=== PATIENT | female | born 1950 | race Caucasian/White ===

== ENCOUNTER 2017-03-13 08:05 | Day surgery (SDC) | payer BC, MEDICARE ==
[~2017-03-13 08:05] MED LIST: Midazolam 1 MG/ML 2 ML SDV ONE; Propofol 200 MG/20 ML SDV ONE; fentaNYL 100 MCG/2 ML SDV ONE
--- NOTE | 2017-03-13 08:40 | PCM.PREANE ---
Preanesthetic Assessment - Anesthesia/Transfusion/Family Hx Anesthesia History: Prior Anesthesia Without Reaction Other Type of Anesthesia Reaction Comment: "hard to wake" Family History of Anesthesia Reaction: No Transfusion History: Prior Transfusion Without Reaction Intubation History: Unknown - Review of Systems General: No Symptoms Pulmonary: No Symptoms Cardiovascular: No Symptoms Gastrointestinal: No Symptoms, Other (last colonoscopt 10 years ago was normal) Neurological: No Symptoms Other: Reports: None - Physical Assessment Height: 1.57 m Weight: 87.09 kg ASA Class: 2 Mental Status: Alert & Oriented x3 Airway Class: Mallampati = 2 Dentition: Reports: Normal Dentition (small notch on front upper incisor) Thyro-Mental Finger Breadths: 3 Mouth Opening Finger Breadths: 3 ROM/Head Extension: Full Lungs: Clear to Auscultation, Normal Respiratory Effort Cardiovascular: Regular Rate, Regular Rhythm - Allergies Allergies/Adverse Reactions: Allergies Allergy/AdvReac Type Severity Reaction Status Date / Time eucalyptus Allergy Shortness Verified 03/08/17 13:00 of Breath lisinopril Allergy Cough Verified 03/08/17 13:00 essential oils Allergy Shortness Uncoded 03/08/17 13:23 of Breath - Blood Blood Available: No - Anesthesia Plan Pre-Op Medication Ordered: None - Acknowledgements Anesthesia Type Planned: MAC Pt an Appropriate Candidate for the Planned Anesthesia: Yes Alternatives and Risks of Anesthesia Discussed w Pt/Guardian: Yes Pt/Guardian Understands and Agrees with Anesthesia Plan: Yes PreAnesthesia Questionnaire HEENT History: Reports: Other (See Below) Other HEENT History: wears glasses, sinusitis Cardiovascular History: Reports: Cardiomyopathy, Other (See Below) Other Cardiovascular History: hx rheumatic fever, hx cardiomyopathy from chemo tx. 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: Musculoskeletal History: Reports: Osteoarthritis Neurological History: Reports: None Psychiatric History: Reports: None Endocrine/Metabolic History: Reports: Obesity/BMI 30+ Hematologic History: Reports: Blood Transfusion(s) Other Hematologic History: blood transfusion with chemo tx's Oncologic (Cancer) History: Reports: Breast Dermatologic History: Reports: None - Past Surgical History Head Surgeries/Procedures: Reports: None GI Surgical History: Reports: Appendectomy, Colonoscopy ('07 - normal) Female Surgical History: Reports: Breast Biopsy, Hysterectomy, Other (See Below) Other Female Surgeries/Procedures: breast lumpectomy x3, hx breast cancer, excision of bartholin cyst - SUBSTANCE USE Smoking Status *Q: Never Smoker Recreational Drug Use History: No - HOME MEDS Home Medications: Home Meds Ascorbate Calcium [Vitamin C] 500 mg CHEW DAILY 03/08/17 [History] Aspirin [[place] Aspirin] 81 mg PO DAILY 03/08/17 [History] Cholecalciferol (Vitamin D3) [Vitamin D3] 1,000 units PO DAILY 03/08/17 [History ] Gluc HCl/Csa/Aguilar Hy/Hyalur Ac [Glucosamine Chondroitin] 1 tab PO DAILY [History] Hydrochlorothiazide 12.5 mg PO DAILY 03/08/17 [History] Losartan Potassium 50 mg PO DAILY 03/08/17 [History] Multivits-Min/Iron/FA/Lutein [Centrum Silver Women Tablet] 1 tab PO DAILY [History] Zinc Gluconate [Zinc] 30 mg PO DAILY 03/08/17 [History] - CURRENT (IN HOUSE) MEDS Current Meds: Current Medications Lactated Ringer's (Ringers, Lactated) 1,000 mls @ 125 mls/hr IV ASDIRECTED [facility] Last Admin: 03/13/17 08:34 Dose: 125 mls/hr Discontinued Medications Fentanyl (Sublimaze) Confirm Administered Dose 100 mcg .ROUTE .STK-MED ONE Stop: 03/13/17 07:05 Lidocaine HCl (Xylocaine-Mpf 1%) Confirm Administered Dose 5 ml .ROUTE .STK-MED ONE Stop: 03/13/17 07:42 Midazolam HCl (Versed 1 Mg/Ml) Confirm Administered Dose 2 mg .ROUTE .STK-MED ONE Stop: 03/13/17 07:05 Propofol (Diprivan 20 Ml) Confirm Administered Dose 200 mg .ROUTE .STK-MED ONE Stop: 03/13/17 07:04
[2017-03-13] MEDS ORDERED: Lactated Ringers 1,000 ML IV SCH ×2 (09:00→09:45)
[2017-03-13] MEDS ORDERED: ePHEDrine 50 MG/ML SDV ONE (09:24)
[2017-03-13] MEDS ORDERED: Glycopyrrolate 0.2 MG/ML SDV ONE (09:25)
--- NOTE | 2017-03-13 09:47 | PCM.OPNOTE ---
- General Post-Op/Procedure Note Date of Surgery/Procedure: 03/13/17 Operative Procedure(s): Colonoscopy with cold rectal polypectomy Pre Op Diagnosis: Desire for colorectal cancer screening Post-Op Diagnosis: Rectal polyp Anesthesia Technique: MAC (ASA II) Primary Surgeon: Derick Kraft Condition: Good Free Text/Narrative:: Dictation [id number] CPT CODE 30334
--- NOTE | 2017-03-13 10:54 | OR ---
SURGEON: Derick Kraft M.D. DATE OF PROCEDURE: 03/13/2017 OPERATION PERFORMED: Colonoscopy with cold rectal polypectomy. ANESTHESIA: MAC. ASA CLASSIFICATION: II. PREOPERATIVE DIAGNOSIS: Desire for colorectal cancer screening. POSTOPERATIVE DIAGNOSIS: Rectal polyp. DESCRIPTION OF PROCEDURE: The patient was taken to the endoscopy room and positioned on the endoscopy table in the left lateral decubitus position. Time-out was called for appropriate identification of the patient and procedure. Monitored anesthesia care was provided. The colonoscope was inserted into the rectum and advanced with minimal difficulty to the cecum, where the colonoscope was retroflexed to visualize the ascending colon from below. The colonoscope was then straightened and slowly withdrawn. The cecum, ascending colon, hepatic flexure, transverse colon, splenic flexure, descending colon, and sigmoid colon showed no tumors, polyps, diverticula, angiodysplasia, or evidence of inflammatory bowel disease. One polyp was encountered in the rectum and removed with multiple bites of the cold biopsy forceps. The polyp was removed in its entirety. Minimal bleeding was noted. The colonoscope was withdrawn to the distal rectum and retroflexed to visualize the anal orifice from above. No tumors or polyps were seen and there were no acute hemorrhoidal changes. The colonoscope was then straightened, the rectum aspirated, and the colonoscope removed. The patient tolerated the procedure well and was taken to recovery room in stable condition. VANESSA MARIE /[id number]
== END 2017-03-13 10:15 | disposition home or self-care (01) ==
LOC: MW.SDS 08:05
PROVIDERS: ATTEND Surgery
DX: Z12.11 Encounter for screening for malignant neoplasm of colon (principal); D12.8 Benign neoplasm of rectum; J20.8 Acute bronchitis due to other specified organisms; B96.89 Other specified bacterial agents as the cause of diseases classified elsewhere; I10 Essential (primary) hypertension; Z85.3 Personal history of malignant neoplasm of breast; E78.5 Hyperlipidemia, unspecified; J04.0 Acute laryngitis; J22 Unspecified acute lower respiratory infection; R73.03 Prediabetes; Z88.8 Allergy status to other drugs, medicaments and biological substances; Z79.82 Long term (current) use of aspirin; Z79.899 Other long term (current) drug therapy; Z90.49 Acquired absence of other specified parts of digestive tract; Z90.710 Acquired absence of both cervix and uterus; Z98.890 Other specified postprocedural states
CPT/HCPCS: 45380; J2250; J3010; J7120; 00810; 88305; J2704

== ENCOUNTER 2019-05-28 16:32 | Observation (INO) | payer BC, MEDICARE ==
[2019-05-28] MEDS ORDERED: Metoprolol Tartrate 5 MG/5 ML SDV IVPUSH ONE (16:51)
[2019-05-28] MEDS ORDERED: Sodium Chloride 0.9% 500 ML IV SCH (17:00)
[2019-05-28 17:28] LABS: BLOOD UREA NITROGEN,BUN 15 mg/dL (7.0-18.0); CARBON DIOXIDE,CO2 26.1 mmol/L (21.0-32.0); CHLORIDE,CL 103 mmol/L (98-107); GLUCOSE RANDOM 98 mg/dL (74-106); POTASSIUM,K 3.6 mmol/L (3.5-5.1); SODIUM,NA 139 mmol/L (136-145)
--- NOTE | 2019-05-28 17:53 | CR ---
Chest: 2 views of the chest were obtained. Comparison: Prior chest x-ray of 05/19/15. Heart is mildly enlarged. Lungs are clear with no acute parenchymal change. Bony structures appear within normal limits for the patient's age. Impression: 1. Cardiomegaly. Nothing acute is otherwise seen. Diagnostic code #2 This report was dictated in [place] Standard Time
[2019-05-28] MEDS ORDERED: Iopamidol 755 MG/ML 500 ML Multipack Bottle IVPUSH STA (18:36)
--- NOTE | 2019-05-28 19:00 | CT ---
CT chest Technique: Multiple axial sections through the chest were obtained. Intravenous contrast was utilized. Study has been performed as pulmonary management protocol. Findings: Heart is enlarged. No pulmonary embolism is seen. Scattered lymph nodes are seen believed to be within normal limits. Aorta shows no aneurysm. Visualized upper abdominal structures shows no discrete abnormality. Calcified nodule is noted within the right lung base measuring 1.0 cm which is felt to represent large calcified granuloma. Lungs show no acute parenchymal change. Bone window settings were reviewed. No acute osseous finding is appreciated. Impression: 1. Cardiomegaly. 2. No findings are seen to indicate pulmonary embolism. 3. 1 cm calcified granuloma within the right lung base. 4. No acute parenchymal abnormality is appreciated. Diagnostic code #2 This report was dictated in [place] Standard Time
--- NOTE | 2019-05-28 19:25 | EDM.PDOC ---
ED HPI GENERAL MEDICAL PROBLEM - General Chief Complaint: Cardiovascular Problem Stated Complaint: SICK Time Seen by Provider: 05/28/19 16:47 - History of Present Illness INITIAL COMMENTS - FREE TEXT/NARRATIVE: HPI 69-year-old female with history of breast CA and cardiomyopathy (EF 30%?) Presents for evaluation of several days of palpitations, chest discomfort, and exercise intolerance. * Medications: denies recent medication changes. * Caffeine: denies any change in baseline caffeine use. * Alcohol: denies preceding significant alcohol use. * Drugs: denies stimulant use. * DVT/PE: denies history of DVT, PE, recent calf tenderness or swelling. M/S/F/SocHx notable for: please see HPI; remainder reviewed with patient and in chart. ROS: Negative constitutional, eye, cardiovascular, pulmonary, GI, , MSK, skin , neurologic, psychiatric, endocrine unless noted in the HPI. Exam HR 131, RR 18, BP 137 or 76, T 36.5C, SaO2 96% on room air. Gen: Pleasant, non-toxic appearing, resting comfortably. HEENT: NC, AT, PEERL, EOMI. Resp: Clear to auscultation bilaterally, normal work of breathing, no accessory muscle usage. Card: Irregularly irregular rate with no murmurs, rubs, or gallops, extremities warm and well perfused. GI: Non-tender to palpation throughout all quadrants, no focal tenderness at McBurney's point, negative Chandra's sign, non-distended, no rebound or guarding. : No suprapubic tenderness to palpation.No CVA tenderness to percussion bilaterally.Deferred MSK: No visible deformities, strength and tone without visually appreciable deficit. Skin: Normal color with no visible lesions. Neuro: alert and oriented 3, no facial asymmetry, vision and hearing WNL. Psych: Mood and affect appropriate. Labs / Imaging: EKG: AFib with a ventricular rate of 139 bpm, no new ST segment changes, new LBBB, or T-wave changes that would suggest acute ischemia. CXR: cardiomegaly. Nothing acute is otherwise seen. WBC 8.00, HB 13.6, d-dimer 0.84, sodium 139, potassium 3.6, troponin <0.050, Magnesium 1.9, TSH pending. CTA PE: cardiomegaly. No findings are seen to indicate pulmonary embolism. 1 cm calcified granuloma within the right lung base. No acute parenchymal abnormalities appreciated. MDM Previous chart, nursing note, labs, imaging, and vitals reviewed. A: 69-year-old female with history of breast CA and cardiomyopathy (EF 30%?) Presents for evaluation of several days of palpitations, chest discomfort, and exercise intolerance. DDx & Evaluation: rate control pursued, IV metoprolol given, patient symptomatic with a heart rate of ~100 (chest pain). * Anemia - H&H within normal limits. * Infection - history, exam, and chest x-ray without evidence of clinically appreciable active infectious process. * Cardiac (myocarditis/pericarditis/ACS/heart failure) - doubt myocarditis and pericarditis given the absence of characteristic changes in the patient's repeat ECG as well as the lack of significant troponin elevation, similarly doubt ACS given the absence of ischemia and are negative troponin. Doubt heart failure given the lack of edema on imaging and exam as well as a negative history. * Hyperthyroidism - no features on history or exam, TSH pending. * PE - no evidence by imaging. * Drugs - history without evidence for recent alcohol, caffeine, or other stimulant use that may have triggered today's presenting episode. * AMANUEL - Given the patient's risk factors suspect AMANUEL may be contributing to today's presentation. * Idiopathic/age - suspect idiopathic given the relative exclusion of alternate etiologies, further evaluation deferred to the patient's primary physician. * Anticoagulation - CHADS-VASc value (Age - 1, Gender - 1, CHF - 0, HTN - 1, Stroke/TIA/Thromboembolism - 0, Vascular Disease - 0, DM 0; discussed case with hospitalist, GRETEL given. Critical Care Time Organ system(s): Cardiovascular. Intervention: Assessment of the patient, interpretation of studies, and communication with the patient. Time: 30 minutes were spent directly related to patient care exclusive of separately billed procedures. Disposition: Admitted for monitoring, titration of beta isa, and an echo. Impression: Atrial fibrillation. chest Pain Score (Numeric/FACES): 5 - Related Data Allergies Allergy/AdvReac Type Severity Reaction Status Date / Time eucalyptus Allergy Shortness Verified 05/28/19 16:35 of Breath lisinopril Allergy Cough Verified 05/28/19 16:35 essential oils Allergy Shortness Uncoded 03/08/17 13:23 of Breath Home Meds: Home Meds Aspirin [[place] Aspirin EC] 81 mg PO DAILY 03/08/17 [History] Cholecalciferol (Vitamin D3) [Vitamin D3] 1,000 units PO DAILY 03/08/17 [History ] Losartan Potassium 50 mg PO DAILY 03/08/17 [History] Multivit-Min/Iron/Folic/Lutein [Centrum Silver Women Tablet] 1 tab PO DAILY [History] hydroCHLOROthiazide [Hydrochlorothiazide] 12.5 mg PO DAILY 03/08/17 [History] Fish Oil/Albers-3 Fatty Acids [Fish Oil 1,000 MG] 1 cap PO DAILY 05/28/19 [ History] Iron 1 tab PO ASDIRECTED 05/28/19 [History] Magnesium 1 tab PO DAILY 05/28/19 [History] Past Medical History HEENT History: Reports: Other (See Below) Other HEENT History: wears glasses, sinusitis Cardiovascular History: Reports: Cardiomyopathy, Other (See Below) Other Cardiovascular History: hx rheumatic fever, hx cardiomyopathy from chemo tx. 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: Musculoskeletal History: Reports: Osteoarthritis Neurological History: Reports: None Psychiatric History: Reports: None Endocrine/Metabolic History: Reports: Obesity/BMI 30+ Hematologic History: Reports: Blood Transfusion(s) Other Hematologic History: blood transfusion with chemo tx's Immunologic History: Reports: None Oncologic (Cancer) History: Reports: Breast Dermatologic History: Reports: None - Infectious Disease History Infectious Disease History: Reports: None - Past Surgical History Head Surgeries/Procedures: Reports: None HEENT Surgical History: Reports: None Cardiovascular Surgical History: Reports: None Respiratory Surgical History: Reports: None GI Surgical History: Reports: Appendectomy, Colonoscopy Female Surgical History: Reports: Breast Biopsy, Hysterectomy, Other (See Below) Other Female Surgeries/Procedures: breast lumpectomy x3, hx breast cancer, excision of bartholin cyst Endocrine Surgical History: Reports: None Neurological Surgical History: Reports: None Musculoskeletal Surgical History: Reports: None Oncologic Surgical History: Reports: None Dermatological Surgical History: Reports: None Social & Family History - Family History Family Medical History: Noncontributory - Tobacco Use Smoking Status *Q: Never Smoker Second Hand Smoke Exposure: No - Caffeine Use Caffeine Use: Reports: None - Recreational Drug Use Recreational Drug Use: No ED ROS GENERAL - Review of Systems Review Of Systems: See Below ED EXAM, GENERAL - Physical Exam Exam: See Below Course - Vital Signs Last Recorded V/S: Last Vital Signs Temp 36.5 C 05/28/19 16:38 Pulse 86 05/28/19 18:00 Resp 17 05/28/19 18:00 BP 123/72 05/28/19 18:00 Pulse Ox 98 05/28/19 18:00 - Orders/Labs/Meds Orders: Active Orders 24 hr Category Date Time Status EKG 12 Lead [EKG Documentation Completion] [RC] STAT Care 05/28/19 16:38 Active TSH [CHEM] Stat Lab 05/28/19 19:21 Ordered Enoxaparin [Lovenox] Med 05/28/19 19:30 Ordered 80 mg SUBCUT DAILY Sodium Chloride 0.9% [Normal Saline] 500 ml Med 05/28/19 17:00 Active IV .BOLUS Medication Orders Enoxaparin Sodium (Lovenox) 80 mg SUBCUT DAILY BRENDAN Sodium Chloride (Normal Saline) 500 mls @ 1,000 mls/hr IV .BOLUS BRENDAN Last Admin: 05/28/19 17:09 Dose: 1,000 mls/hr Labs: Laboratory Tests 05/28/19 05/28/19 05/28/19 Range/Units 16:52 16:52 16:52 WBC 8.00 (4.0-11.0) K/uL RBC 4.46 (4.30-5.90) M/uL Hgb 13.6 (12.0-16.0) g/dL Hct 41.7 (36.0-46.0) % MCV 93.5 (80.0-98.0) fL MCH 30.5 (27.0-32.0) pg MCHC 32.6 (31.0-37.0) g/dL RDW Std Deviation 46.7 (28.0-62.0) fl RDW Coeff of Karsten 14 (11.0-15.0) % Plt Count 188 (150-400) K/uL MPV 11.10 (7.40-12.00) fL Neut % (Auto) 47.7 L (48.0-80.0) % Lymph % (Auto) 39.0 (16.0-40.0) % [place] % (Auto) 10.5 (0.0-15.0) % Eos % (Auto) 2.3 (0.0-7.0) % Baso % (Auto) 0.5 (0.0-1.5) % Neut # (Auto) 3.8 (1.4-5.7) K/uL Lymph # (Auto) 3.1 H (0.6-2.4) K/uL [place] # (Auto) 0.8 (0.0-0.8) K/uL Eos # (Auto) 0.2 (0.0-0.7) K/uL Baso # (Auto) 0.0 (0.0-0.1) K/uL Nucleated RBC % 0.0 /100WBC Nucleated RBCs # 0 K/uL D-Dimer, Quantitative 0.84 H (0.0-0.50) mg/L FEU Sodium 139 (136-145) mmol/L Potassium 3.6 (3.5-5.1) mmol/L Chloride 103 (98-107) mmol/L Carbon Dioxide 26.1 (21.0-32.0) mmol/L BUN 15 (7.0-18.0) mg/dL Creatinine 0.9 (0.6-1.0) mg/dL Est Cr Clr Drug Dosing 47.32 mL/min Estimated GFR (MDRD) > 60.0 ml/min Glucose 98 (74-106) mg/dL Calcium 9.1 (8.5-10.1) mg/dL Magnesium 1.9 (1.8-2.4) mg/dL Troponin I < 0.050 (0.000-0.056) ng/mL Meds: Medications Generic Name Dose Route Start Last Admin Trade Name Freq PRN Reason Stop Dose Admin Enoxaparin Sodium 80 mg 05/28/19 19:30 Lovenox SUBCUT DAILY BRENDAN Sodium Chloride 500 mls @ 1,000 mls/hr 05/28/19 17:00 05/28/19 17:09 Normal Saline IV 1,000 mls/hr .BOLUS BRENDAN Administration Discontinued Medications Generic Name Dose Route Start Last Admin Trade Name Freq PRN Reason Stop Dose Admin Iopamidol 50 ml 05/28/19 18:36 05/28/19 18:37 Isovue Multipack-370 (76%) IVPUSH 05/28/19 18:37 50 ml ONETIME STA Administration Metoprolol Tartrate 5 mg 05/28/19 16:51 05/28/19 17:10 Lopressor IVPUSH 05/28/19 16:52 5 mg ONETIME ONE Administration Quetiapine Fumarate 50 mg 05/28/19 17:56 Seroquel PO 05/28/19 17:57 ONETIME ONE Ziprasidone 10 mg 05/28/19 21:00 Geodon PO BEDTIME BRENDAN Departure - Departure Time of Disposition: 19:25 Disposition: Admitted As Inpatient 67 Clinical Impression: Atrial fibrillation Referrals: Josue Delcid MD [Primary Care Provider] - Sepsis Event Note - Evaluation Sepsis Screening Result: No Definite Risk - Focused Exam Vital Signs: Vital Signs Temp Pulse Pulse Resp BP BP Pulse Ox 05/28/19 18:00 86 17 123/72 98 05/28/19 17:16 96 16 123/69 95 05/28/19 17:10 117 H 127/72 05/28/19 16:38 36.5 C 131 H 18 137/76 96 Date Exam was Performed: 05/28/19 Time Exam was Performed: 19:25 - My Orders Last 24 Hours: My Active Orders 05/28/19 16:38 EKG 12 Lead [EKG Documentation Completion] [RC] STAT 05/28/19 17:00 Sodium Chloride 0.9% [Normal Saline] 500 ml IV .BOLUS 05/28/19 19:21 TSH [CHEM] Stat 05/28/19 19:30 Enoxaparin [Lovenox] 80 mg SUBCUT DAILY - Assessment/Plan Last 24 Hours: My Active Orders 05/28/19 16:38 EKG 12 Lead [EKG Documentation Completion] [RC] STAT 05/28/19 17:00 Sodium Chloride 0.9% [Normal Saline] 500 ml IV .BOLUS 05/28/19 19:21 TSH [CHEM] Stat 05/28/19 19:30 Enoxaparin [Lovenox] 80 mg SUBCUT DAILY
[2019-05-28] MEDS ORDERED: Enoxaparin 100 MG/1 ML Syringe SUBCUT SCH (19:30)
[2019-05-28] MEDS ORDERED: Ziprasidone HCl 20 MG Cap PO SCH (21:00)
--- NOTE | 2019-05-28 23:24 | PCM.HP.2 ---
H&P History of Present Illness - General Date of Service: 05/28/19 Admit Problem/Dx: Admission Diagnosis/Problem Admission Diagnosis/Problem Atrial fibrillation - History of Present Illness Initial Comments - Free Text/Narative: 69 yo female with pmh of cardiomyopathy and breast cancer who presented to the ED with complaints of chest pain for past three days. She describes the pain as chest pressure that is constant and not related to exertion. She denies any palpitations, shortness of breath, or heart burn. In the ED she was noted to be in atrial fibrillation with HR in the 140s. She was given IV metoprolol with improvement of her her heart rate in 100 and resolution of her chest pain. chest Pain Score (Numeric/FACES): 5 - Related Data Allergies/Adverse Reactions: Allergies Allergy/AdvReac Type Severity Reaction Status Date / Time eucalyptus Allergy Shortness Verified 05/28/19 20:19 of Breath lisinopril Allergy Cough Verified 05/28/19 20:19 essential oils Allergy Shortness Uncoded 05/28/19 20:19 of Breath Home Medications: Home Meds Aspirin [Bates Aspirin EC] 81 mg PO DAILY 03/08/17 [History] Cholecalciferol (Vitamin D3) [Vitamin D3] 1,000 units PO DAILY 03/08/17 [History ] Losartan Potassium 50 mg PO DAILY 03/08/17 [History] Multivit-Min/Iron/Folic/Lutein [Centrum Silver Women Tablet] 1 tab PO DAILY [History] hydroCHLOROthiazide [Hydrochlorothiazide] 12.5 mg PO DAILY 03/08/17 [History] Fish Oil/[place]-3 Fatty Acids [Fish Oil 1,000 MG] 1 cap PO DAILY 05/28/19 [ History] Iron 1 tab PO ASDIRECTED 05/28/19 [History] Magnesium 1 tab PO DAILY 05/28/19 [History] Past Medical History HEENT History: Reports: Other (See Below) Other HEENT History: wears glasses, Cardiovascular History: Reports: Cardiomyopathy, Other (See Below) Other Cardiovascular History: hx rheumatic fever, hx cardiomyopathy from chemo tx. 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: Musculoskeletal History: Reports: Osteoarthritis Neurological History: Reports: None Psychiatric History: Reports: None Endocrine/Metabolic History: Reports: Obesity/BMI 30+ Hematologic History: Reports: Blood Transfusion(s) Other Hematologic History: blood transfusion with chemo tx's Immunologic History: Reports: None Oncologic (Cancer) History: Reports: Breast Dermatologic History: Reports: None - Infectious Disease History Infectious Disease History: Reports: None - Past Surgical History Head Surgeries/Procedures: Reports: None HEENT Surgical History: Reports: None Cardiovascular Surgical History: Reports: None Respiratory Surgical History: Reports: None GI Surgical History: Reports: Appendectomy, Colonoscopy Female Surgical History: Reports: Breast Biopsy, Hysterectomy, Other (See Below) Other Female Surgeries/Procedures: breast lumpectomy x3, hx breast cancer, excision of bartholin cyst Endocrine Surgical History: Reports: None Neurological Surgical History: Reports: None Musculoskeletal Surgical History: Reports: None Oncologic Surgical History: Reports: Lumpectomy Dermatological Surgical History: Reports: None Social & Family History - Family History Family Medical History: Noncontributory - Tobacco Use Smoking Status *Q: Never Smoker Second Hand Smoke Exposure: No - Caffeine Use Caffeine Use: Reports: Coffee - Recreational Drug Use Recreational Drug Use: No H&P Review of Systems - Review of Systems: Review Of Systems: Comprehensive ROS is negative, except as noted in HPI. Exam - Exam Exam: See Below - Vital Signs Vital Signs: Last Vital Signs Temp 36.3 C 05/28/19 20:15 Pulse 101 H 05/28/19 20:15 Resp 18 05/28/19 20:15 BP 118/73 05/28/19 20:15 Pulse Ox 96 05/28/19 20:15 Weight: 85.8 kg - Exam General: Alert, Oriented HEENT: Mucosa Moist & [place] Neck: Supple Lungs: Clear to Auscultation, Normal Respiratory Effort Cardiovascular: Regular Rate, Irregular Rhythm Extremities: Non-Tender, No Pedal Edema Skin: Warm, Dry, Intact - Patient Data Lab Results Last 24 hrs: Laboratory Results - last 24 hr 05/28/19 05/28/19 05/28/19 Range/Units 16:52 16:52 16:52 WBC 8.00 (4.0-11.0) K/uL RBC 4.46 (4.30-5.90) M/uL Hgb 13.6 (12.0-16.0) g/dL Hct 41.7 (36.0-46.0) % MCV 93.5 (80.0-98.0) fL MCH 30.5 (27.0-32.0) pg MCHC 32.6 (31.0-37.0) g/dL RDW Std Deviation 46.7 (28.0-62.0) fl RDW Coeff of Karsten 14 (11.0-15.0) % Plt Count 188 (150-400) K/uL MPV 11.10 (7.40-12.00) fL Neut % (Auto) 47.7 L (48.0-80.0) % Lymph % (Auto) 39.0 (16.0-40.0) % [place] % (Auto) 10.5 (0.0-15.0) % Eos % (Auto) 2.3 (0.0-7.0) % Baso % (Auto) 0.5 (0.0-1.5) % Neut # (Auto) 3.8 (1.4-5.7) K/uL Lymph # (Auto) 3.1 H (0.6-2.4) K/uL [place] # (Auto) 0.8 (0.0-0.8) K/uL Eos # (Auto) 0.2 (0.0-0.7) K/uL Baso # (Auto) 0.0 (0.0-0.1) K/uL Nucleated RBC % 0.0 /100WBC Nucleated RBCs # 0 K/uL D-Dimer, Quantitative 0.84 H (0.0-0.50) mg/L FEU Sodium 139 (136-145) mmol/L Potassium 3.6 (3.5-5.1) mmol/L Chloride 103 (98-107) mmol/L Carbon Dioxide 26.1 (21.0-32.0) mmol/L BUN 15 (7.0-18.0) mg/dL Creatinine 0.9 (0.6-1.0) mg/dL Est Cr Clr Drug Dosing 47.32 mL/min Estimated GFR (MDRD) > 60.0 ml/min Glucose 98 (74-106) mg/dL Calcium 9.1 (8.5-10.1) mg/dL Magnesium 1.9 (1.8-2.4) mg/dL Troponin I < 0.050 (0.000-0.056) ng/mL TSH 3rd Generation (0.36-3.74) uIU/mL 05/28/19 Range/Units 16:52 WBC (4.0-11.0) K/uL RBC (4.30-5.90) M/uL Hgb (12.0-16.0) g/dL Hct (36.0-46.0) % MCV (80.0-98.0) fL MCH (27.0-32.0) pg MCHC (31.0-37.0) g/dL RDW Std Deviation (28.0-62.0) fl RDW Coeff of Karsten (11.0-15.0) % Plt Count (150-400) K/uL MPV (7.40-12.00) fL Neut % (Auto) (48.0-80.0) % Lymph % (Auto) (16.0-40.0) % [place] % (Auto) (0.0-15.0) % Eos % (Auto) (0.0-7.0) % Baso % (Auto) (0.0-1.5) % Neut # (Auto) (1.4-5.7) K/uL Lymph # (Auto) (0.6-2.4) K/uL [place] # (Auto) (0.0-0.8) K/uL Eos # (Auto) (0.0-0.7) K/uL Baso # (Auto) (0.0-0.1) K/uL Nucleated RBC % /100WBC Nucleated RBCs # K/uL D-Dimer, Quantitative (0.0-0.50) mg/L FEU Sodium (136-145) mmol/L Potassium (3.5-5.1) mmol/L Chloride (98-107) mmol/L Carbon Dioxide (21.0-32.0) mmol/L BUN (7.0-18.0) mg/dL Creatinine (0.6-1.0) mg/dL Est Cr Clr Drug Dosing mL/min Estimated GFR (MDRD) ml/min Glucose (74-106) mg/dL Calcium (8.5-10.1) mg/dL Magnesium (1.8-2.4) mg/dL Troponin I (0.000-0.056) ng/mL TSH 3rd Generation 3.36 (0.36-3.74) uIU/mL Result Diagrams: 05/28/19 16:52 05/28/19 16:52 Sepsis Event Note - Evaluation Sepsis Screening Result: No Definite Risk - Focused Exam Vital Signs: Vital Signs Temp Pulse Pulse Resp BP BP Pulse Ox 05/28/19 20:15 36.3 C 101 H 18 118/73 96 05/28/19 19:35 36.3 C 82 18 107/64 96 05/28/19 18:00 86 17 123/72 98 05/28/19 17:16 96 16 123/69 95 05/28/19 17:10 117 H 127/72 05/28/19 16:38 36.5 C 131 H 18 137/76 96 Date Exam was Performed: 05/28/19 Time Exam was Performed: 23:17 Problem List Initiated/Reviewed/Updated: Yes Orders Last 24hrs: Active Orders 24 hr Category Date Time Status Patient Status [ADT] Stat ADT 05/28/19 19:27 Active EKG 12 Lead [EKG Documentation Completion] [RC] STAT Care 05/28/19 16:38 Active Telemetry Monitoring [Cardiac Monitoring] [RC] Q8H Care 05/28/19 20:00 Active Regular Diet [DIET] Diet 05/29/19 Breakfast Active Echo 2D wo Cont [US] AM Exams 05/29/19 05:11 Ordered TROPONIN I [CHEM] Q6H Lab 05/28/19 22:53 Received TROPONIN I [CHEM] Q6H Lab 05/29/19 05:00 Ordered Enoxaparin [Lovenox] Med 05/28/19 19:30 Active 80 mg SUBCUT DAILY Metoprolol Tartrate [Lopressor] Med 05/28/19 23:15 Ordered 25 mg PO Q12H Sodium Chloride 0.9% [Normal Saline] 500 ml Med 05/28/19 17:00 Active IV .BOLUS Medication Orders Enoxaparin Sodium (Lovenox) 80 mg SUBCUT DAILY [facility] Last Admin: 05/28/19 19:32 Dose: 80 mg Sodium Chloride (Normal Saline) 500 mls @ 1,000 mls/hr IV .BOLUS BRENDAN Last Admin: 05/28/19 17:09 Dose: 1,000 mls/hr Metoprolol Tartrate (Lopressor) 25 mg PO Q12H [facility] Assessment/Plan Comment:: 69 yo female admitted for atrial fibrillation with RVR. She is currently rate controlled and chest pain free. We will continue to monitor on telemetry. Will start metoprolol 25mg BID and order echocardiogram for the morning.
[2019-05-28] MEDS: Metoprolol Tartrate 25 MG Tab PO SCH (23:41)
[2019-05-29] MEDS ORDERED: Acetaminophen 325 MG Tab PO PRN (08:02)
[2019-05-29] MEDS ORDERED: Ondansetron 4 MG/2 ML SDV IVPUSH PRN (08:02)
[2019-05-29] MEDS ORDERED: Sodium Chloride 0.9% 2.5 ML Syringe FLUSH PRN (08:02)
[2019-05-29] MEDS ORDERED: Sodium Chloride 0.9% 10 ML Syringe FLUSH PRN (08:02)
[2019-05-29 08:53] LABS: BLOOD UREA NITROGEN,BUN 13 mg/dL (7.0-18.0); CARBON DIOXIDE,CO2 25.7 mmol/L (21.0-32.0); CHLORIDE,CL 105 mmol/L (98-107); GLUCOSE RANDOM 112 mg/dL (74-106); POTASSIUM,K 3.9 mmol/L (3.5-5.1); SODIUM,NA 143 mmol/L (136-145)
[2019-05-29] MEDS ORDERED: Non-Formulary Medication 1 Each (Hydrochlorothiazide [Hydrochlorothiazide] 12.5 MG) PO SCH (09:00)
[2019-05-29] MEDS ORDERED: Fish Oil/Omega-3 Fatty Acids 1 Gm Cap PO SCH (09:00)
[2019-05-29] MEDS ORDERED: Apixaban 5 MG Tab PO SCH (09:00)
[2019-05-29] MEDS ORDERED: Cholecalciferol (Vitamin D3) 25 MCG Tab PO SCH (09:00)
[2019-05-29] MEDS ORDERED: Magnesium Oxide 400 MG Tab PO SCH ×2 (09:00→09:45)
[2019-05-29] MEDS ORDERED: Losartan 50 MG Tab PO SCH (09:00)
[2019-05-29] MEDS ORDERED: Multivitamin Tab PO SCH (09:00)
[2019-05-29] MEDS ORDERED: Ferrous Sulfate 325 MG Tab PO SCH (09:45)
[2019-05-29] MEDS ORDERED: Potassium Chloride 20 MEQ Tab.ER PO ONE (10:05)
[2019-05-29] MEDS: Metoprolol Tartrate 25 MG Tab PO SCH (10:29)
--- NOTE | 2019-05-29 11:30 | PCM.DCSUM1 ---
Discharge Summary - Hospital Course Brief History: 69 yo female with pmh of cardiomyopathy and breast cancer who presented to the ED with complaints of chest pain for past three days. She describes the pain as chest pressure that is constant and not related to exertion. She denies any palpitations, shortness of breath, or heart burn. In the ED she was noted to be in atrial fibrillation with HR in the 140s. She was given IV metoprolol with improvement of her her heart rate in 100 and resolution of her chest pain. Diagnosis: Stroke: No - Discharge Data Discharge Date: 05/29/19 Discharge Disposition: Home, Self-Care 01 Condition: Good - Referral to Home Health Primary Care Physician: Josue Delcid MD - Patient Instructions Diet: Heart Healthy Diet Activity: As Tolerated Showering/Bathing: May Shower Notify Provider of: Fever, Increased Pain, Swelling and Redness, Drainage, Nausea and/or Vomiting Other/Special Instructions: Hold Losartan, monitor Blood pressures. If blood pressures consistently stay above 110 on the top, then you may resume Losartan. - Discharge Plan *PRESCRIPTION DRUG MONITORING PROGRAM REVIEWED*: Not Applicable *COPY OF PRESCRIPTION DRUG MONITORING REPORT IN PATIENT YADIEL: Not Applicable Prescriptions/Med Rec: Apixaban [Eliquis] 5 mg PO BID #30 tablet Metoprolol Tartrate [Lopressor] 25 mg PO Q12H #60 tablet Home Medications: Home Meds Cholecalciferol (Vitamin D3) [Vitamin D3] 5,000 units PO DAILY 03/08/17 [History ] Multivit-Min/Iron/Folic/Lutein [Centrum Silver Women Tablet] 1 tab PO DAILY [History] Fish Oil/[place]-3 Fatty Acids [Fish Oil 1,000 MG] 1 cap PO DAILY 05/28/19 [ History] Iron 1 tab PO ASDIRECTED 05/28/19 [History] Magnesium 1 tab PO DAILY 05/28/19 [History] Apixaban [Eliquis] 5 mg PO BID #30 tablet 05/29/19 [Rx] Aspirin 81 mg PO DAILY 05/29/19 [History] Losartan Potassium 50 mg PO DAILY #0 05/29/19 [Rx] Metoprolol Tartrate [Lopressor] 25 mg PO Q12H #60 tablet 05/29/19 [Rx] hydroCHLOROthiazide [Hydrochlorothiazide] 12.5 mg PO DAILY 05/29/19 [History] Oxygen Therapy Mode: Room Air Patient Handouts: Atrial Fibrillation, [id number] Referrals: Candida Durbin MD [Physician] - Janki Perkins NP [Nurse Practitioner] - 06/03/19 11:00 am (Was not able to be made with Dr. Delcid due to his full schedule.) Josue Delcid MD [Primary Care Provider] - 06/26/19 1:30 pm - Discharge Summary/Plan Comment DC Time >30 min.: No Discharge Summary/Plan Comment: admitting Diagnoses: Afib RVR Discharge Diagnoses: Afib RVR Other PMH Cardiomyopathy Hx breast cancer Liseth was admitted after having chest pain and palpitations for a few days. She was noted to be in Afib RVR, treated with Metoprolol IV which improved rate control. She was started on Metoprolol 25 mg BID, rate controlled 60-90s, remains in Afib. D dimer elevated, but CT angio negative for PE. CHADSVASc score 2, so Eliquis 5 mg BID started at this time. She will continue this for now. BP softer, we opted to stop HCTZ and Hold Losartan for now. She is to monitor BP at home, if BP remains above 110 SBP consistently, she can resume Losartan. Otherwise she wan follow with PCP and decide restarting Losartan at half the dose. ECHO pending on discharge. Troponins trended. She is to follow up with Cardiology and PCP as outpatient. She is to return to the ED or clinic if concerns should arise. - Patient Data Vitals - Most Recent: Last Vital Signs Temp 98.2 F 05/29/19 07:48 Pulse 90 05/29/19 10:29 Resp 16 05/29/19 07:48 BP 110/74 05/29/19 10:29 Pulse Ox 92 L 05/29/19 07:48 Weight - Most Recent: 85.8 kg I&O - Last 24 hours: Intake & Output 05/28/19 05/29/19 05/29/19 22:59 06:59 14:59 Intake Total 1800 Output Total 1400 Balance 400 Lab Results - Last 24 hrs: Laboratory Results - last 24 hr 05/28/19 05/28/19 05/28/19 Range/Units 16:52 16:52 16:52 WBC 8.00 (4.0-11.0) K/uL RBC 4.46 (4.30-5.90) M/uL Hgb 13.6 (12.0-16.0) g/dL Hct 41.7 (36.0-46.0) % MCV 93.5 (80.0-98.0) fL MCH 30.5 (27.0-32.0) pg MCHC 32.6 (31.0-37.0) g/dL RDW Std Deviation 46.7 (28.0-62.0) fl RDW Coeff of Karsten 14 (11.0-15.0) % Plt Count 188 (150-400) K/uL MPV 11.10 (7.40-12.00) fL Neut % (Auto) 47.7 L (48.0-80.0) % Lymph % (Auto) 39.0 (16.0-40.0) % [place] % (Auto) 10.5 (0.0-15.0) % Eos % (Auto) 2.3 (0.0-7.0) % Baso % (Auto) 0.5 (0.0-1.5) % Neut # (Auto) 3.8 (1.4-5.7) K/uL Lymph # (Auto) 3.1 H (0.6-2.4) K/uL Coffee # (Auto) 0.8 (0.0-0.8) K/uL Eos # (Auto) 0.2 (0.0-0.7) K/uL Baso # (Auto) 0.0 (0.0-0.1) K/uL Nucleated RBC % 0.0 /100WBC Nucleated RBCs # 0 K/uL D-Dimer, Quantitative 0.84 H (0.0-0.50) mg/L FEU Sodium 139 (136-145) mmol/L Potassium 3.6 (3.5-5.1) mmol/L Chloride 103 (98-107) mmol/L Carbon Dioxide 26.1 (21.0-32.0) mmol/L BUN 15 (7.0-18.0) mg/dL Creatinine 0.9 (0.6-1.0) mg/dL Est Cr Clr Drug Dosing 47.32 mL/min Estimated GFR (MDRD) > 60.0 ml/min Glucose 98 (74-106) mg/dL Calcium 9.1 (8.5-10.1) mg/dL Magnesium 1.9 (1.8-2.4) mg/dL Troponin I < 0.050 (0.000-0.056) ng/mL TSH 3rd Generation (0.36-3.74) uIU/mL 05/28/19 05/28/19 05/29/19 Range/Units 16:52 22:53 05:40 WBC (4.0-11.0) K/uL RBC (4.30-5.90) M/uL Hgb (12.0-16.0) g/dL Hct (36.0-46.0) % MCV (80.0-98.0) fL MCH (27.0-32.0) pg MCHC (31.0-37.0) g/dL RDW Std Deviation (28.0-62.0) fl RDW Coeff of Karsten (11.0-15.0) % Plt Count (150-400) K/uL MPV (7.40-12.00) fL Neut % (Auto) (48.0-80.0) % Lymph % (Auto) (16.0-40.0) % [place] % (Auto) (0.0-15.0) % Eos % (Auto) (0.0-7.0) % Baso % (Auto) (0.0-1.5) % Neut # (Auto) (1.4-5.7) K/uL Lymph # (Auto) (0.6-2.4) K/uL Coffee # (Auto) (0.0-0.8) K/uL Eos # (Auto) (0.0-0.7) K/uL Baso # (Auto) (0.0-0.1) K/uL Nucleated RBC % /100WBC Nucleated RBCs # K/uL D-Dimer, Quantitative (0.0-0.50) mg/L FEU Sodium (136-145) mmol/L Potassium (3.5-5.1) mmol/L Chloride (98-107) mmol/L Carbon Dioxide (21.0-32.0) mmol/L BUN (7.0-18.0) mg/dL Creatinine (0.6-1.0) mg/dL Est Cr Clr Drug Dosing mL/min Estimated GFR (MDRD) ml/min Glucose (74-106) mg/dL Calcium (8.5-10.1) mg/dL Magnesium (1.8-2.4) mg/dL Troponin I < 0.050 < 0.050 (0.000-0.056) ng/mL TSH 3rd Generation 3.36 (0.36-3.74) uIU/mL 05/29/19 05/29/19 Range/Units 08:20 08:20 WBC 5.78 (4.0-11.0) K/uL RBC 4.53 (4.30-5.90) M/uL Hgb 13.6 (12.0-16.0) g/dL Hct 42.5 (36.0-46.0) % MCV 93.8 (80.0-98.0) fL MCH 30.0 (27.0-32.0) pg MCHC 32.0 (31.0-37.0) g/dL RDW Std Deviation 47.4 (28.0-62.0) fl RDW Coeff of Karsten 14 (11.0-15.0) % Plt Count 171 (150-400) K/uL MPV 11.10 (7.40-12.00) fL Neut % (Auto) 45.2 L (48.0-80.0) % Lymph % (Auto) 42.0 H (16.0-40.0) % [place] % (Auto) 9.7 (0.0-15.0) % Eos % (Auto) 2.6 (0.0-7.0) % Baso % (Auto) 0.5 (0.0-1.5) % Neut # (Auto) 2.6 (1.4-5.7) K/uL Lymph # (Auto) 2.4 (0.6-2.4) K/uL Coffee # (Auto) 0.6 (0.0-0.8) K/uL Eos # (Auto) 0.2 (0.0-0.7) K/uL Baso # (Auto) 0.0 (0.0-0.1) K/uL Nucleated RBC % 0.0 /100WBC Nucleated RBCs # 0 K/uL D-Dimer, Quantitative (0.0-0.50) mg/L FEU Sodium 143 (136-145) mmol/L Potassium 3.9 (3.5-5.1) mmol/L Chloride 105 (98-107) mmol/L Carbon Dioxide 25.7 (21.0-32.0) mmol/L BUN 13 (7.0-18.0) mg/dL Creatinine 0.8 (0.6-1.0) mg/dL Est Cr Clr Drug Dosing 52.77 mL/min Estimated GFR (MDRD) > 60.0 ml/min Glucose 112 H (74-106) mg/dL Calcium 8.9 (8.5-10.1) mg/dL Magnesium 1.8 (1.8-2.4) mg/dL Troponin I (0.000-0.056) ng/mL TSH 3rd Generation (0.36-3.74) uIU/mL Med Orders - Current: Current Medications Acetaminophen (Tylenol) 650 mg PO Q4H PRN PRN Reason: Pain (Mild 1-3)/fever Apixaban (Eliquis) 5 mg PO BID [facility] Last Admin: 05/29/19 09:34 Dose: 5 mg Cholecalciferol (Vitamin D3) 125 mcg PO DAILY [facility] Ferrous Sulfate (Ferrous Sulfate) 325 mg PO DAILY [facility] Last Admin: 05/29/19 10:29 Dose: 325 mg Fish Oil (Fish Oil) 1 gm PO DAILY [facility] Last Admin: 05/29/19 09:34 Dose: 1 gm Losartan Potassium (Cozaar) 50 mg PO DAILY [facility] Last Admin: 05/29/19 09:37 Dose: Not Given Magnesium Oxide (Magnesium Oxide) 400 mg PO DAILY [facility] Last Admin: 05/29/19 10:31 Dose: 400 mg Metoprolol Tartrate (Lopressor) 25 mg PO Q12H [facility] Last Admin: 05/29/19 10:29 Dose: 25 mg Multivitamins/Minerals/Vitamin C (Tab-A-Db) 1 tab PO DAILY [facility] Last Admin: 05/29/19 09:35 Dose: 1 tab Ondansetron HCl (Zofran) 4 mg IVPUSH Q4H PRN PRN Reason: Nausea Sodium Chloride (Saline Flush) 10 ml FLUSH ASDIRECTED PRN PRN Reason: Keep Vein Open Sodium Chloride (Saline Flush) 2.5 ml FLUSH ASDIRECTED PRN PRN Reason: Keep Vein Open Discontinued Medications Cholecalciferol (Vitamin D3) 25 mcg PO DAILY [facility] Last Admin: 05/29/19 09:34 Dose: 25 mcg Enoxaparin Sodium (Lovenox) 80 mg SUBCUT DAILY [facility] Last Admin: 05/28/19 19:32 Dose: 80 mg Sodium Chloride (Normal Saline) 500 mls @ 1,000 mls/hr IV .BOLUS [facility] Last Admin: 05/28/19 17:09 Dose: 1,000 mls/hr Iopamidol (Isovue Multipack-370 (76%)) 50 ml IVPUSH ONETIME STA Stop: 05/28/19 18:37 Last Admin: 05/28/19 18:37 Dose: 50 ml Magnesium Oxide (Magnesium Oxide) 1 mg PO DAILY [facility] Last Admin: 05/29/19 10:11 Dose: Not Given Metoprolol Tartrate (Lopressor) 5 mg IVPUSH ONETIME ONE Stop: 05/28/19 16:52 Last Admin: 05/28/19 17:10 Dose: 5 mg Non-Formulary Medication (Hydrochlorothiazide [Hydrochlorothiazide]) 12.5 mg PO DAILY [facility] Potassium Chloride (Klor-Con M20) 20 meq PO ONETIME ONE Stop: 05/29/19 10:06 Last Admin: 05/29/19 10:29 Dose: 20 meq Quetiapine Fumarate (Seroquel) 50 mg PO ONETIME ONE Stop: 05/28/19 17:57 Ziprasidone (Geodon) 10 mg PO BEDTIME [facility]
[2019-05-30] MEDS ORDERED: Cholecalciferol (Vitamin D3) 25 MCG Tab PO SCH (09:00)
--- NOTE | 2019-05-31 15:38 | ECHO ---
The echocardiogram report can be seen in this patient's EMR (Electronic Medical Record) in the REPORTS section. The echocardiogram report has also been scanned into PACS and can be seen there as well. RUI
== END 2019-05-29 12:55 | disposition home or self-care (01) ==
LOC: MW.ED 16:32 → MW.MS 19:27
PROVIDERS: ADMIT Internal Medicine; ATTEND Internal Medicine
DX: I48.91 Unspecified atrial fibrillation (principal); I42.7 Cardiomyopathy due to drug and external agent; I10 Essential (primary) hypertension; E66.9 Obesity, unspecified; Z68.34 Body mass index [BMI] 34.0-34.9, adult; Z88.8 Allergy status to other drugs, medicaments and biological substances; Z79.82 Long term (current) use of aspirin; Z85.3 Personal history of malignant neoplasm of breast
CPT/HCPCS: 36415; 71046; 71275; 80048; 83735; 84443; 84484; 85025; 85379; 93005; 93306; 96361; 96374; 99291; A9270; J1650; J3490; J7040; Q9967

== ENCOUNTER 2020-04-10 08:49 | Day surgery (SDC) | payer BC ==
[~2020-04-10 08:49] MED LIST changes: +Lactated Ringers 1,000 ML IV SCH; +Lidocaine 2% 5 ML SDV ONE; -Midazolam 1 MG/ML 2 ML SDV ONE; +cefOXitin 2 GM in Premix Bag 1 BAG IV ONE
--- NOTE | 2020-04-10 09:30 | PCM.PREANE ---
Preanesthetic Assessment - Anesthesia/Transfusion/Family Hx Anesthesia History: Prior Anesthesia Reaction Other Type of Anesthesia Reaction Comment: trouble coming out of anesthesia Family History of Anesthesia Reaction: No Transfusion History: Prior Transfusion Without Reaction Intubation History: Unknown - Review of Systems General: No Symptoms Pulmonary: No Symptoms Cardiovascular: No Symptoms Gastrointestinal: No Symptoms Neurological: No Symptoms Other: Reports: None - Physical Assessment Height: 5 ft 2 in Weight: 78.471 kg ASA Class: 5E Emergency Airway Class: Mallampati = 2 Dentition: Reports: Normal Dentition Thyro-Mental Finger Breadths: 3 Mouth Opening Finger Breadths: 3 ROM/Head Extension: Full Lungs: Clear to Auscultation, Normal Respiratory Effort Cardiovascular: Regular Rate, Regular Rhythm - Allergies Allergies/Adverse Reactions: Allergies Allergy/AdvReac Type Severity Reaction Status Date / Time eucalyptus Allergy Shortness Verified 04/06/20 12:55 of Breath lisinopril Allergy Cough Verified 04/06/20 12:55 essential oils Allergy Shortness Uncoded 04/06/20 12:55 of Breath - Blood Blood Available: No - Anesthesia Plan Pre-Op Medication Ordered: None - Acknowledgements Anesthesia Type Planned: MAC Pt an Appropriate Candidate for the Planned Anesthesia: Yes Alternatives and Risks of Anesthesia Discussed w Pt/Guardian: Yes Pt/Guardian Understands and Agrees with Anesthesia Plan: Yes PreAnesthesia Questionnaire HEENT History: Reports: Other (See Below) Other HEENT History: wears glasses, Cardiovascular History: Reports: Cardiomyopathy, Other (See Below) Other Cardiovascular History: hx rheumatic fever, hx cardiomyopathy from chemo tx. for breast CA in , benign essential HTN, s/p MVR (mechanical) 09/13, cardiovesion after that - NSR now. Still takes anticoag. 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: Musculoskeletal History: Reports: Osteoarthritis Neurological History: Reports: None Psychiatric History: Reports: None Endocrine/Metabolic History: Reports: Obesity/BMI 30+ (BMI 31.6) Hematologic History: Reports: Anemia, Blood Transfusion(s) Other Hematologic History: blood transfusion with chemo tx's Immunologic History: Reports: None Oncologic (Cancer) History: Reports: Breast Dermatologic History: Reports: None - Infectious Disease History Infectious Disease History: Reports: None - Past Surgical History Cardiovascular Surgical History: Reports: None GI Surgical History: Reports: Appendectomy, Colonoscopy Female Surgical History: Reports: Hysterectomy Oncologic Surgical History: Reports: Lumpectomy - SUBSTANCE USE Tobacco Use Status *Q: Never Tobacco User - HOME MEDS Home Medications: Home Meds Cholecalciferol (Vitamin D3) [Vitamin D3] 2,000 units PO DAILY 03/08/17 [History] Aspirin 81 mg PO DAILY 05/29/19 [History] Docusate Sodium [Stool Softener] 180 mg PO DAILY 04/06/20 [History] Enoxaparin [Lovenox] 1 injection SUBCUT ASDIRECTED 04/06/20 [History] Ferrous Sulfate 325 mg PO DAILY 04/06/20 [History] Furosemide 20 mg PO BID 04/06/20 [History] Metoprolol Tartrate [Lopressor] 25 mg PO DAILY 04/06/20 [History] Pantoprazole Sodium [Protonix] 20 mg PO DAILY 04/06/20 [History] Potassium Chloride 20 meq PO BID 04/06/20 [History] Warfarin [Coumadin] 7.5 mg PO DAILY 04/06/20 [History] - CURRENT (IN HOUSE) MEDS Current Meds: Current Medications Lactated Ringer's (Ringers, Lactated) 1,000 mls @ 125 mls/hr IV ASDIRECTED BRENDAN Discontinued Medications Fentanyl (Sublimaze) Confirm Administered Dose 100 mcg .ROUTE .STK-MED ONE Stop: 04/10/20 07:11 Cefoxitin Sodium 2 gm/ Premix 50 mls @ 100 mls/hr IV ONETIME ONE Stop: 04/10/20 08:29 Lidocaine (Xylocaine-Mpf 2%) Confirm Administered Dose 5 ml .ROUTE .STK-MED ONE Stop: 04/10/20 07:10 Propofol (Diprivan 20 Ml) Confirm Administered Dose 400 mg .ROUTE .STK-MED ONE Stop: 04/10/20 07:11
[2020-04-10] MEDS ORDERED: cefOXitin 1 GM Vial ONE (09:45)
[2020-04-10] MEDS ORDERED: Sodium Chloride 0.9% 20 ML ONE (09:47)
[2020-04-10] MEDS ORDERED: Propofol 200 MG/20 ML SDV ONE (10:34)
--- NOTE | 2020-04-10 10:58 | PCM.OPNOTE ---
- General Post-Op/Procedure Note Date of Surgery/Procedure: 04/10/20 Operative Procedure(s): Colonoscopy with cecal biopsy and cold ascending colon and rectal polypectomies Pre Op Diagnosis: Personal history of colon polyps. Iron deficiency anemia. Post-Op Diagnosis: Mild angiodysplasia. Ascending colon polyp. Rectal polyp. Anesthesia Technique: MAC (ASA II) Primary Surgeon: Derick Kraft Condition: Good Free Text/Narrative:: DICTATION [id number] CPT CODE [id number]
[2020-04-10] MEDS ORDERED: Lactated Ringers 1,000 ML IV SCH (11:00)
--- NOTE | 2020-04-10 11:15 | PCM.POSTAN ---
POST ANESTHESIA ASSESSMENT - MENTAL STATUS Mental Status: Alert, Oriented - VITAL SIGNS Vital Signs: Last Vital Signs Temp 36.2 C 04/10/20 10:54 Pulse 57 L 04/10/20 11:10 Resp 13 04/10/20 11:10 BP 90/37 L 04/10/20 11:10 Pulse Ox 96 04/10/20 11:10 - RESPIRATORY Respiratory Status: Respiratory Rate WNL, Airway Patent, O2 Saturation Stable - CARDIOVASCULAR CV Status: Pulse Rate WNL, Blood Pressure Stable - GASTROINTESTINAL GI Status: No Symptoms - PAIN Pain Score: 0 - POST OP HYDRATION Hydration Status: Adequate & Stable - OBSERVATIONS Free Text/Narrative:: No anesthesia problems
--- NOTE | 2020-04-10 11:38 | PCM48HPAN ---
Post Anesthesia Note - EVALUATION WITHIN 48HRS OF ANESTHETIC Vital Signs in Normal Range: Yes Patient Participated in Evaluation: Yes Respiratory Function Stable: Yes Airway Patent: Yes Cardiovascular Function Stable: Yes Hydration Status Stable: Yes Pain Control Satisfactory: Yes Nausea and Vomiting Control Satisfactory: Yes Mental Status Recovered: Yes Vital Signs: Last Vital Signs Temp 36.2 C 04/10/20 10:54 Pulse 57 L 04/10/20 11:10 Resp 13 04/10/20 11:10 BP 90/37 L 04/10/20 11:10 Pulse Ox 96 04/10/20 11:10 - COMMENTS/OBSERVATIONS Free Text/Narrative:: No anesthesia problems
--- NOTE | 2020-04-10 12:52 | OR ---
SURGEON: Derick Kraft M.D. DATE OF PROCEDURE: 04/10/2020 OPERATION PERFORMED: Colonoscopy with cecal biopsy and cold ascending colon and rectal polypectomy. PRIMARY SURGEON: Derick Kraft MD. ANESTHESIA: MAC. ASA CLASSIFICATION: II. PREOPERATIVE DIAGNOSES: 1. Personal history of colon polyps. 2. Iron deficiency anemia. POSTOPERATIVE DIAGNOSES: 1. Cecal angiodysplasia. 2. Ascending colon polyp. 3. Rectal polyp. DESCRIPTION OF PROCEDURE: The patient was taken to the endoscopy room and positioned on the endoscopy table in the left lateral decubitus position. Time-out was called for appropriate identification of the patient and procedure. With her history of prosthetic heart valve, 2 g of Mefoxin was given for prophylaxis. The colonoscope was then inserted into the rectum and advanced with minimal difficulty to the cecum. The cecum had changes suggestive of angiodysplasia and biopsies of this area were obtained. One small polyp was encountered in the ascending colon and removed separately with the cold biopsy forceps. The colonoscope was also retroflexed in the cecum to visualize the ascending colon from below and then straightened and slowly withdrawn. The remainder of the ascending colon, hepatic flexure, transverse colon, splenic flexure, descending colon, and sigmoid colon showed no tumors, polyps, diverticula, or angiodysplastic changes. Once the colonoscope was withdrawn to the rectum, another polyp was encountered and removed again with the cold biopsy forceps. The colonoscope was then retroflexed to visualize the anal orifice from above. No tumors, polyps, or acute hemorrhoidal changes were noted. The colonoscope was then straightened, the rectum aspirated, and the colonoscope removed. The patient tolerated the procedure well and was taken to the recovery room in stable condition. VANESSA / FRANK /[id number]
== END 2020-04-10 11:43 | disposition home or self-care (01) ==
LOC: MW.SDS 08:49
PROVIDERS: ATTEND Surgery
DX: D12.2 Benign neoplasm of ascending colon (principal); D12.8 Benign neoplasm of rectum; D50.9 Iron deficiency anemia, unspecified; K55.20 Angiodysplasia of colon without hemorrhage; I48.91 Unspecified atrial fibrillation; I42.9 Cardiomyopathy, unspecified; I11.0 Hypertensive heart disease with heart failure; I50.9 Heart failure, unspecified; E78.5 Hyperlipidemia, unspecified; E55.9 Vitamin D deficiency, unspecified; I05.2 Rheumatic mitral stenosis with insufficiency; Z85.3 Personal history of malignant neoplasm of breast; Z88.8 Allergy status to other drugs, medicaments and biological substances; Z79.82 Long term (current) use of aspirin; Z79.899 Other long term (current) drug therapy; Z79.01 Long term (current) use of anticoagulants; Z90.49 Acquired absence of other specified parts of digestive tract; Z98.890 Other specified postprocedural states
CPT/HCPCS: 45380; J0694; J2001; J2704; J3010; J7120; 88305

== ENCOUNTER 2021-05-19 12:01 | Emergency (ER) | payer BC, MEDICARE ==
[2021-05-19 13:13] LABS: BLOOD UREA NITROGEN,BUN 15 mg/dL (7.0-18.0); CARBON DIOXIDE,CO2 29.6 mmol/L (21.0-32.0); CHLORIDE,CL 99 mmol/L (98-107); GLUCOSE RANDOM 148 mg/dL (74-106); POTASSIUM,K 3.2 mmol/L (3.5-5.1); SODIUM,NA 138 mmol/L (136-145)
== END 2021-05-19 13:52 | disposition home or self-care (01) ==
LOC: MW.ED 12:01
DX: R04.0 Epistaxis (principal); I10 Essential (primary) hypertension; K21.9 Gastro-esophageal reflux disease without esophagitis; E66.9 Obesity, unspecified; Z68.31 Body mass index [BMI] 31.0-31.9, adult; Z88.8 Allergy status to other drugs, medicaments and biological substances; Z79.01 Long term (current) use of anticoagulants; Z79.899 Other long term (current) drug therapy
CPT/HCPCS: 36415; 80053; 85025; 85610; 99283

== ENCOUNTER 2021-05-25 20:35 | Emergency (ER) | payer BC, MEDICARE ==
[2021-05-25] MEDS ORDERED: Lidocaine 2% Viscous Solution 100 ML Bottle PO ONE ×2 (21:58→22:43)
[2021-05-25] MEDS ORDERED: Lidocaine 2% Viscous Solution 15 ML UD PO ONE ×2 (22:10→22:48)
[2021-05-25 22:47] LABS: CARBON DIOXIDE,CO2 28.8 mmol/L (21.0-32.0); POTASSIUM,K 3.9 mmol/L (3.5-5.1)
[2021-05-25] MEDS ORDERED: Lidocaine 2% Viscous Solution 15 ML UD ONE (22:51)
== END 2021-05-25 23:43 | disposition home or self-care (01) ==
LOC: MW.ED 20:35
DX: R04.0 Epistaxis (principal); K21.9 Gastro-esophageal reflux disease without esophagitis; I11.9 Hypertensive heart disease without heart failure; M19.90 Unspecified osteoarthritis, unspecified site; E66.9 Obesity, unspecified; Z88.8 Allergy status to other drugs, medicaments and biological substances; Z91.048 Other nonmedicinal substance allergy status; Z79.01 Long term (current) use of anticoagulants; Z79.899 Other long term (current) drug therapy; Z68.31 Body mass index [BMI] 31.0-31.9, adult
CPT/HCPCS: 30903; 36415; 80053; 85025; 85610; 85730; 99283; A9270

== ENCOUNTER 2024-02-21 12:08 | Emergency (ER) | payer BC ==
[2024-02-21] MEDS ORDERED: Sodium Chloride 0.9% 2.5 ML Syringe FLUSH PRN (12:38)
[2024-02-21] MEDS ORDERED: Sodium Chloride 0.9% 10 ML Syringe FLUSH PRN (12:38)
[2024-02-21 13:07] LABS: BASOPHILS ABSOLUTE AUTO 0.04 K/uL (0.00-0.20); BASOPHILS PERCENT AUTO 0.5 % (0.0-1.0); EOSINOPHILS ABSOLUTE AUTO 0.13 K/uL (0.00-0.45); EOSINOPHILS PERCENT AUTO 1.8 % (0.0-6.0); IMMATURE GRAN ABSOLUTE AUTO 0.02 K/uL (0.00-0.05); IMMATURE GRAN PERCENT AUTO 0.3 % (0.0-0.4); LYMPHOCYTES PERCENT AUTO 25.7 % (24.0-44.0); MEAN CORPUSCULAR HEMOGLOBIN 31.2 pg (28.0-32.0); MEAN CORPUSCULAR HGB CONC 34.1 g/dL (32.0-36.0); MEAN CORPUSCULAR VOLUME 91.3 fL (83.0-99.0); MEAN PLATELET VOLUME 10.2 fL (9.4-12.3); MONOCYTES ABSOLUTE AUTO 0.68 K/uL (0.00-0.80); MONOCYTES PERCENT AUTO 9.2 % (0.0-8.0); NEUTROPHILS ABSOLUTE AUTO 4.63 K/uL (1.80-7.70); NEUTROPHILS PERCENT AUTO 62.5 % (41.0-71.0); PLATELET COUNT,PLT 193 K/uL (150-400); RED BLOOD CELL COUNT 4.49 M/uL (4.10-5.30)
[2024-02-21 13:24] LABS: INR 3.17 (0.86-1.11)
[2024-02-21 13:57] LABS: A/G RATIO 1.3 (0.9-1.6); ALBUMIN 4.1 g/dL (3.4-5.0); BILIRUBIN TOTAL 1.8 mg/dL (0.2-1.0); CALCIUM 8.9 mg/dL (8.5-10.1); CARBON DIOXIDE,CO2 30.7 mmol/L (21.0-32.0); CREATININE 0.9 mg/dL (0.6-1.0); EST CRCL DRUG DOSING (CG) 44.69 mL/min; POTASSIUM,K 3.3 mmol/L (3.5-5.1); PROTEIN TOTAL,TP 7.2 g/dL (6.4-8.2); TSH ULTRASENSITIVE 2.47 uIU/mL (0.36-3.74)
== END 2024-02-21 16:43 | disposition home or self-care (01) ==
LOC: MW.ED 12:08
DX: R00.2 Palpitations (principal); K21.9 Gastro-esophageal reflux disease without esophagitis; E66.9 Obesity, unspecified; Z88.8 Allergy status to other drugs, medicaments and biological substances; Z79.01 Long term (current) use of anticoagulants; Z79.899 Other long term (current) drug therapy; Z90.49 Acquired absence of other specified parts of digestive tract; Z90.710 Acquired absence of both cervix and uterus; Z68.33 Body mass index [BMI] 33.0-33.9, adult; Z75.8 Other problems related to medical facilities and other health care
CPT/HCPCS: 36415; 71045; 71045-26; 80053; 83690; 83880; 84443; 84484; 85025; 85610; 93005; 99285